=== PATIENT | female | born 1945 | race Caucasian/White ===

== ENCOUNTER 2018-05-24 10:10 | Inpatient (IN) | payer MEDICARE, OTHER ==
[2018-05-19 15:46] LABS: BASOPHILS % (AUTO) 0.3 % (0-1); EOSINOPHILS # (AUTO) 0.1 X10'3 (0-0.9); LYMPHOCYTES # (AUTO) 0.9 X10'3 (1.1-4.8); LYMPHOCYTES % (AUTO) 11.4 % (21-51); MEAN CORPUSCULAR HEMOGLOBIN 30.2 PG (27.0-31.0); MEAN CORPUSCULAR VOLUME 91.5 FL (78-98); MEAN PLATELET VOLUME 8.5 FL (7.4-10.4); MONOCYTES # (AUTO) 0.1 X10'3 (0-0.9); MONOCYTES % (AUTO) 1.5 % (2-12); NEUTROPHILS # (AUTO) 6.7 X10'3 (1.8-7.7); NEUTROPHILS % (AUTO) 85.8 % (42-75); PRE OP HEMATOCRIT 42.2 % (35.0-45.0); PRE OP HEMOGLOBIN 13.9 g/dL (12.0-16.0); PRE OP PLATELET COUNT 302 X10'3 (140-440); RED BLOOD COUNT 4.61 X10'6 (4.20-5.60); RED CELL DISTRIBUTION WIDTH 13.7 % (11.5-14.5)
[2018-05-19 16:01] LABS: CLARITY,URINE CLOUDY (Clear); COLOR,URINE YELLOW (Yellow); GLUCOSE, URINE NEGATIVE (Neg); KETONES,URINE TRACE mg/dl (Neg); LEUKOCYTE ESTERASE ,URINE NEGATIVE (Neg); NITRITES, URINE NEGATIVE (Neg); OCCULT BLOOD,URINE NEGATIVE (Neg); PH,URINE 7.5 (4.8-8.0); PROTEIN,URINE NEGATIVE (Neg); UROBILINOGEN,URINE 0.2 E.U/dL (0.2-1.0)
[2018-05-19 16:07] LABS: UA COLLECTION TYPE CLN CATCH MIDSTREAM
[2018-05-19 16:08] LABS: AMORPHOUS PHOSPHATES 3+; BACTERIA,URINE FEW /HPF (Neg); SQUAMOUS EPITHELIAL CELL,UR FEW /LPF (FEW)
[2018-05-19 16:09] LABS: RBC,URINE 0-2 /HPF (0-2); WBC,URINE 0-4 /HPF (0-4)
[2018-05-19 16:25] LABS: ALBUMIN 3.9 G/DL (3.4-5.0); ALBUMIN/GLOBULIN RATIO 1.3 (1.1-1.5); ALKALINE PHOSPHATASE 89 IU/L (46-116); BLOOD UREA NITROGEN 17 MG/DL (7-18); BUN/CREATININE RATIO 18.3 (6.6-38.0); CHLORIDE 105 MMOL/L (99-107); CREATININE 0.93 MG/DL (0.40-0.90); PRE OP ALT 54 U/L (30-65); PRE OP ANION GAP 12 (8-16); PRE OP AST 33 U/L (10-37); PRE OP BILIRUB, TOTAL 0.4 MG/DL (0.0-1.0); PRE OP GLUCOSE 106 MG/DL (70-104); PRE OP POTASSIUM 3.7 MMOL/L (3.4-5.1); PRE OP SODIUM 144 MMOL/L (135-145); TOTAL CARBON DIOXIDE 26.8 MMOL/L (24-32); eGFR 59 ML/MIN
[~2018-05-24] VITALS: Ht 160 cm; Wt 78.0 kg
[2018-05-24] VITALS (22 sets, daily range): BP systolic 92–179; BP diastolic 34–96
[~2018-05-24 10:10] MED LIST: ACET-2971 PO; CLOP75TA15 PO; FLAX100015 PO; HYDROcodone/acetaminophen 10/325mg tab PO PRN; HYDROmorphone 1 mg/ml syringe IV PRN; MAGN400T39 PO; MULT-1085 PO; PRED5TAB PO; QUET-1 PO; acetaminophen 325mg tablet PO ONE; acetaminophen 325mg tablet PO PRN; bisacodyl 10mg suppository rectal RC PRN; ceFAZolin 1GM/D5W- ADD-VANTAGE 50 ML IV ONE; cefazolin/dext.iso 2gm/100 ML IV ONE; celeCOXIB 100mg capsule PO ONE; diphenhydrAMINE 25mg capsule PO PRN; famotidine 20mg tablet PO ONE; gabapentin 300mg capsule PO ONE; magnesium hydroxide 30ml (MOM) UD suspension PO PRN; metoclopramide 5 mg/ml inj IV ONE; ondansetron/PF 4mg/2ml inj IV PRN; oxyCODONE SR 10mg (sust. release) tab PO ONE; ringers solution, lacted 1,000 ML IV SCH; vancomycin inj 1,500 MG in normal saline 300ml IV soln IV ONE
[2018-05-24] MEDS ORDERED: BUPIVAcaine/PF 2.5mg/ml (0.25%) 10ml vial ONE (10:21)
[2018-05-24] MEDS ORDERED: glycopyrrolate 0.2mg/ml inj ONE (10:52)
[2018-05-24] MEDS ORDERED: MIDAZolam 5mg/5ml vial ONE (10:57)
[2018-05-24] MEDS ORDERED: fentaNYL/PF 50MCG/1 ML 2ML syringe ONE (10:57)
[2018-05-24] MEDS ORDERED: hydrocortisone sod succ/PF 100mg/2ml inj. ONE (11:11)
[2018-05-24] MEDS ORDERED: ePHEDrine 50MG/ML INJ. ONE (11:34)
[2018-05-24] MEDS ORDERED: ringers solution, lacted 1,000 ML IV SCH (11:49)
[2018-05-24] MEDS ORDERED: proCHLORperazine 10 MG/2 ml inj IV PRN (11:50)
[2018-05-24] MEDS ORDERED: meperidine/PF 25mg/ml syringe IV PRN ×3 (11:50)
[2018-05-24] MEDS ORDERED: ondansetron/PF 4mg/2ml inj IV PRN (11:50)
[2018-05-24] MEDS ORDERED: ROPIVAcaine 0.5% (5mg/ml) 30ml vial ONE (12:22)
[2018-05-24] MEDS: potassium cl 20mEq in 1/2 NS 1,000 ML IV SCH ×2 (16:08→19:02)
[2018-05-24] MEDS: gabapentin 300mg capsule PO SCH ×3 (16:08→20:07)
[2018-05-24] MEDS: multivitamins, therapeutics tablet PO SCH (16:09)
[2018-05-24] MEDS: clopidogrel 75mg tablet PO SCH (16:09)
[2018-05-24] MEDS: ascorbic acid 500mg tablet PO SCH ×2 (16:09→20:07)
[2018-05-24] MEDS ORDERED: tranexamic acid inj. 780 MG in normal saline 100ml IV soln 100 ML IV ONE (16:40)
[2018-05-24] MEDS: cefazolin/dext.iso 2gm/50ml 50 ML IV SCH (16:45)
[2018-05-24] MEDS ORDERED: sennosides 8.6mg tablet PO SCH (21:00)
[2018-05-24] MEDS ORDERED: quetiapine 100mg tablet PO SCH (21:00)
[2018-05-24] MEDS ORDERED: cefazolin/dext.iso 2gm/100ml 100 ML IV SCH (22:00)
[2018-05-24] MEDS: HYDROcodone/acetaminophen 10/325mg tab PO PRN (22:54)
[2018-05-25] MEDS: cefazolin/dext.iso 2gm/50ml 50 ML IV SCH ×2 (00:21→09:26)
[2018-05-25] MEDS: potassium cl 20mEq in 1/2 NS 1,000 ML IV SCH ×2 (01:14→06:48)
[2018-05-25 02:00] VITALS: BP 139/80
[2018-05-25] MEDS: HYDROcodone/acetaminophen 10/325mg tab PO PRN (04:55)
[2018-05-25 06:00] VITALS: BP 159/76
[2018-05-25 06:13] LABS: ANION GAP 8 (8-16); CHLORIDE 108 MMOL/L (99-107); POTASSIUM 4.3 MMOL/L (3.5-5.1); SODIUM 144 MMOL/L (135-145); TOTAL CARBON DIOXIDE 27.7 MMOL/L (24-32)
[2018-05-25 06:21] LABS: RED BLOOD COUNT 3.75 X10'6 (4.20-5.60)
[2018-05-25 06:22] LABS: BASOPHILS % (AUTO) 0.1 % (0-1); EOSINOPHILS % (AUTO) 0 % (0-6); HEMATOCRIT 34.4 % (35.0-45.0); HEMOGLOBIN 12.2 g/dl (12.0-16.0); LYMPHOCYTES # (AUTO) 1.6 X10'3 (1.1-4.8); LYMPHOCYTES % (AUTO) 13.1 % (21-51); MEAN CORPUSCULAR HEMOGLOBIN 32.5 PG (27.0-31.0); MEAN CORPUSCULAR HGB CONC 35.4 % (33.0-36.5); MEAN CORPUSCULAR VOLUME 91.8 FL (78-98); MEAN PLATELET VOLUME 8.8 FL (7.4-10.4); MONOCYTES # (AUTO) 0.8 X10'3 (0-0.9); MONOCYTES % (AUTO) 6.5 % (2-12); NEUTROPHILS # (AUTO) 9.6 X10'3 (1.8-7.7); NEUTROPHILS % (AUTO) 80.3 % (42-75); PLATELET COUNT 248 X10'3 (140-440); RED CELL DISTRIBUTION WIDTH 12.6 % (11.5-14.5)
[2018-05-25] MEDS ORDERED: predniSONE 5mg tablet PO SCH (08:00)
[2018-05-25] MEDS: ascorbic acid 500mg tablet PO SCH (09:27)
[2018-05-25] MEDS: clopidogrel 75mg tablet PO SCH (09:27)
[2018-05-25] MEDS: multivitamins, therapeutics tablet PO SCH (09:27)
[2018-05-25] MEDS: gabapentin 300mg capsule PO SCH (09:28)
[2018-05-25 10:00] VITALS: BP 138/57
[2018-05-25] MEDS ORDERED: celeCOXIB 100mg capsule PO SCH (20:00)
== END 2018-05-25 11:30 | disposition home or self-care (01) | DRG 497 ==
LOC: PRE-OP 10:10 → ORTHO 4S 15:43
PROVIDERS: ADMIT Orthopaedic Surgery; ATTEND Orthopaedic Surgery
PROC: 3E0T3BZ Introduction of Anesthetic Agent into Peripheral Nerves and Plexi, Percutaneous Approach (ICD-10-PCS; 2018-05-24)
PROC: BQ171ZZ Fluoroscopy of Right Knee using Low Osmolar Contrast (ICD-10-PCS; 2018-05-24)
PROC: 0QPG04Z Removal of Internal Fixation Device from Right Tibia, Open Approach (ICD-10-PCS; 2018-05-24)
PROC: 0QPB04Z Removal of Internal Fixation Device from Right Lower Femur, Open Approach (ICD-10-PCS; principal; 2018-05-24 10:52)
DX: T84.498A Other mechanical complication of other internal orthopedic devices, implants and grafts, initial encounter (principal); Y79.3 Surgical instruments, materials and orthopedic devices (including sutures) associated with adverse incidents; I25.10 Atherosclerotic heart disease of native coronary artery without angina pectoris; I10 Essential (primary) hypertension; E66.9 Obesity, unspecified; M17.0 Bilateral primary osteoarthritis of knee; Z95.5 Presence of coronary angioplasty implant and graft; Z79.899 Other long term (current) drug therapy; Z79.02 Long term (current) use of antithrombotics/antiplatelets; Z68.30 Body mass index [BMI] 30.0-30.9, adult; Y92.89 Other specified places as the place of occurrence of the external cause
CPT/HCPCS: 36415; 71046; 73560; 76000; 80051; 80053; 81001; 85025; 85610; 85730; 86885; 86900; 86901; 87070; 93005; 97116; 97162; 97530; A6222; A6446; A6449; A7000; G0378; J0690; J1170; J1720; J2250; J2765; J2795; J3010; J3370; J3490; J7030; J7120; J7512; L1832

== ENCOUNTER 2018-08-23 05:38 | Inpatient (IN) | payer MEDICARE, OTHER | END 2018-08-25 12:30 | disposition home or self-care (01) | LOC: PAS IN 05:38 → ORTHO 4S 11:15 | PROC: 0SRC0J9 Replacement of Right Knee Joint with Synthetic Substitute, Cemented, Open Approach (ICD-10-PCS; principal; 2018-08-23 07:12) | DX: M17.11 Unilateral primary osteoarthritis, right knee (principal); D62 Acute posthemorrhagic anemia ==

== ENCOUNTER 2019-01-03 07:22 | Day surgery (SDC) | payer MEDICARE, OTHER ==
[2018-12-29 16:31] LABS: ALBUMIN 3.8 G/DL (3.4-5.0); ALBUMIN/GLOBULIN RATIO 1.2 (1.1-1.5); ALKALINE PHOSPHATASE 103 IU/L (46-116); BLOOD UREA NITROGEN 22 MG/DL (7-18); BUN/CREATININE RATIO 20.6 (6.6-38.0); CALCIUM 8.9 MG/DL (8.5-10.1); CHLORIDE 107 MMOL/L (99-107); CREATININE 1.07 MG/DL (0.40-0.90); PRE OP ALT 32 U/L (30-65); PRE OP ANION GAP 6 (8-16); PRE OP AST 19 U/L (10-37); PRE OP BILIRUB, TOTAL 0.4 MG/DL (0.0-1.0); PRE OP GLUCOSE 82 MG/DL (70-104); PRE OP POTASSIUM 3.6 MMOL/L (3.4-5.1); PRE OP SODIUM 144 MMOL/L (135-145); TOTAL CARBON DIOXIDE 30.7 MMOL/L (24-32); eGFR 50 ML/MIN
[2018-12-29 16:34] LABS: BASOPHILS % (AUTO) 0.5 % (0-1); EOSINOPHILS # (AUTO) 0.2 X10'3 (0-0.9); EOSINOPHILS % (AUTO) 2.6 % (0-6); LYMPHOCYTES # (AUTO) 3.2 X10'3 (1.1-4.8); LYMPHOCYTES % (AUTO) 35.7 % (21-51); MEAN CORPUSCULAR HEMOGLOBIN 29.5 PG (27.0-31.0); MEAN CORPUSCULAR HGB CONC 32.8 g/dL (33.0-36.5); MEAN PLATELET VOLUME 8.3 FL (7.4-10.4); MONOCYTES # (AUTO) 0.7 X10'3 (0-0.9); MONOCYTES % (AUTO) 7.9 % (2-12); NEUTROPHILS # (AUTO) 4.7 X10'3 (1.8-7.7); NEUTROPHILS % (AUTO) 53.3 % (42-75); PRE OP HEMATOCRIT 43.3 % (35.0-45.0); PRE OP HEMOGLOBIN 14.2 g/dL (12.0-16.0); PRE OP PLATELET COUNT 288 X10'3 (140-440); RED BLOOD COUNT 4.81 X10'6 (4.20-5.60); RED CELL DISTRIBUTION WIDTH 14.4 % (11.5-14.5)
[2018-12-29 16:45] LABS: PARTIAL THROMBOPLASTIN TIME 25 SECONDS (22-32)
[~2019-01-03] VITALS: Ht 157.5 cm; Wt 78.0 kg
[2019-01-03] VITALS (17 sets, daily range): BP systolic 101–179; BP diastolic 36–98
[~2019-01-03 07:22] MED LIST changes: -ACET-2971 PO; +B COMPLEX PO; +CAL/MAG/ZINC PO; +CHOL10002 PO; -CLOP75TA15 PO; +DICL75TA5 PO; -HYDROcodone/acetaminophen 10/325mg tab PO PRN; -HYDROmorphone 1 mg/ml syringe IV PRN; -MULT-1085 PO; -QUET-1 PO; -acetaminophen 325mg tablet PO ONE; -acetaminophen 325mg tablet PO PRN; -bisacodyl 10mg suppository rectal RC PRN; -ceFAZolin 1GM/D5W- ADD-VANTAGE 50 ML IV ONE; -cefazolin/dext.iso 2gm/100 ML IV ONE; -celeCOXIB 100mg capsule PO ONE; -diphenhydrAMINE 25mg capsule PO PRN; -famotidine 20mg tablet PO ONE; -gabapentin 300mg capsule PO ONE; -magnesium hydroxide 30ml (MOM) UD suspension PO PRN; -metoclopramide 5 mg/ml inj IV ONE; -ondansetron/PF 4mg/2ml inj IV PRN; -oxyCODONE SR 10mg (sust. release) tab PO ONE; -ringers solution, lacted 1,000 ML IV SCH; -vancomycin inj 1,500 MG in normal saline 300ml IV soln IV ONE
[2019-01-03] MEDS ORDERED: metoclopramide 5 mg/ml inj IV ONE (08:00)
[2019-01-03] MEDS ORDERED: acetaminophen 325mg tablet PO ONE (08:00)
[2019-01-03] MEDS ORDERED: cefazolin/dext.iso 2gm/100 ML IV ONE (08:00)
[2019-01-03] MEDS ORDERED: gabapentin 300mg capsule PO ONE (08:00)
[2019-01-03] MEDS ORDERED: celeCOXIB 100mg capsule PO ONE (08:00)
[2019-01-03] MEDS ORDERED: famotidine 20mg tablet PO ONE (08:00)
[2019-01-03] MEDS ORDERED: ringers solution, lacted 1,000 ML IV SCH ×2 (08:00→10:20)
[2019-01-03] MEDS ORDERED: BUPIVAcaine/PF 2.5 mg/ml (0.25%) 30ml vial ONE (09:26)
[2019-01-03] MEDS ORDERED: etomidate 2mg/ml inj. ONE (09:36)
[2019-01-03] MEDS ORDERED: dexamethasone sod phosphate 10mg/ml inj ONE (09:36)
[2019-01-03] MEDS ORDERED: MIDAZolam 5mg/5ml vial ONE ×2 (09:43→09:52)
[2019-01-03] MEDS ORDERED: fentaNYL/PF 50MCG/1 ML 2ML syringe ONE (09:43)
[2019-01-03] MEDS ORDERED: propofol inj 20 ML IV ONE (09:54)
[2019-01-03] MEDS ORDERED: CLOP75TA35 PO (10:13)
[2019-01-03] MEDS ORDERED: ASPI81TA52 PO (10:13)
[2019-01-03] MEDS ORDERED: meperidine/PF 25mg/ml syringe IV PRN ×2 (10:20)
[2019-01-03] MEDS ORDERED: hydrALAZINE 20mg/ml inj. IV PRN (10:20)
[2019-01-03] MEDS ORDERED: labetalol 20mg/4ml (5mg/ml) syringe IV PRN (10:20)
[2019-01-03] MEDS ORDERED: ondansetron/PF 4mg/2ml inj IV PRN ×2 (10:20→10:25)
[2019-01-03] MEDS ORDERED: fentaNYL/PF 50MCG/1 ML 2ML syringe IV PRN ×2 (10:20)
[2019-01-03] MEDS ORDERED: diphenhydrAMINE 50 mg/ml inj IV PRN (10:25)
--- NOTE | 2019-01-03 10:54 | NUR ---
Received from OR via [facility], accompanied by Anesthesiologist DR POWELL and report given by Anesthesiologist. PT DROWSY, DENIES PAIN, LEFT KNEE W/KAT WRAP COVERING ISLAND DRSG/TIERA/SUTURES, CDI. Addendum: 01/03/19 at 1125 by Kassandra Vanegas RN Amended: Links added.
--- NOTE | 2019-01-03 15:14 | NUR ---
PT GIVEN LUNCH, PTS SENSATION RETURN TO [facility], RAMIREZ CATHETER D/CD AFTER DEFLATING BALLOON, PTS DRSG W/BLOODY DRAINAGE AFTER PT STANDING, CALL INTO DR SANCHEZ, UPDATED, ORDERS RECEIVED, CHANGED DRSG, INFERIOR LATERAL INCISION W/SMALL AMT OF BLOODY DRAINAGE, PLACED 4X4'S W/KERLEX AND KAT WRAP COVERING, CDI, INSTRUCTED PT TO CALL DR SANCHEZ OFFICE IF RE-BLEEDS, PT VERBALIZED UNDERSTANDING, D/C INSTRUCTIONS GONE OVER AND GIVEN TO PT, VERBALIZE UNDERSTANDING. PT D'CD TO HOME VIA W/C TO PRIVATE VEHICLE W/O INCIDENT. Addendum: 01/03/19 at 1533 by Kassandra Vanegas RN Amended: Links added.
[2019-03-21] MEDS ORDERED: ZOLP10TA5 PO (11:02)
[2019-03-21] MEDS ORDERED: MULT-933 PO (11:03)
== END 2019-01-03 15:14 | disposition home or self-care (01) ==
LOC: PAS 07:22
PROVIDERS: ATTEND Orthopaedic Surgery
PROC: 0QPH04Z Removal of Internal Fixation Device from Left Tibia, Open Approach (ICD-10-PCS; 2019-01-03)
PROC: 0QPC04Z Removal of Internal Fixation Device from Left Lower Femur, Open Approach (ICD-10-PCS; principal; 2019-01-03 09:36)
DX: Z47.2 Encounter for removal of internal fixation device (principal); M17.12 Unilateral primary osteoarthritis, left knee; M25.562 Pain in left knee; R26.2 Difficulty in walking, not elsewhere classified; E66.9 Obesity, unspecified; L30.3 Infective dermatitis; I25.2 Old myocardial infarction; I12.9 Hypertensive chronic kidney disease with stage 1 through stage 4 chronic kidney disease, or unspecified chronic kidney disease; N18.3 Chronic kidney disease, stage 3 (moderate); I25.10 Atherosclerotic heart disease of native coronary artery without angina pectoris; Z95.5 Presence of coronary angioplasty implant and graft
CPT/HCPCS: 20680; 36415; 73552; 76000; 80053; 82948; 85025; 85610; 85730; C1713; J1100; J2250; J2704; J2765; J3010; J3490; J7120; A4618; A6449; A7000

== ENCOUNTER 2019-03-28 05:36 | Inpatient (IN) | payer MEDICARE, OTHER ==
[2019-03-21 11:31] LABS: BASOPHILS % (AUTO) 0.4 % (0-1); EOSINOPHILS % (AUTO) 0.4 % (0-6); LYMPHOCYTES # (AUTO) 1.4 X10'3 (1.1-4.8); MEAN CORPUSCULAR HEMOGLOBIN 30.6 PG (27.0-31.0); MEAN CORPUSCULAR HGB CONC 33.7 g/dL (33.0-36.5); MEAN PLATELET VOLUME 8.6 FL (7.4-10.4); MONOCYTES # (AUTO) 0.3 X10'3 (0-0.9); MONOCYTES % (AUTO) 3.1 % (2-12); NEUTROPHILS # (AUTO) 8.4 X10'3 (1.8-7.7); NEUTROPHILS % (AUTO) 82.1 % (42-75); PRE OP HEMATOCRIT 44.3 % (35.0-45.0); PRE OP HEMOGLOBIN 14.9 g/dL (12.0-16.0); PRE OP PLATELET COUNT 292 X10'3 (140-440); RED BLOOD COUNT 4.87 X10'6 (4.20-5.60); RED CELL DISTRIBUTION WIDTH 14.1 % (11.5-14.5)
[2019-03-21 11:40] LABS: PRE OP PARTIAL THROMB. TIME 24 SECONDS (22-32); PRE OP PROTIME 9.6 SECONDS (9.0-12.0)
[2019-03-21 11:42] LABS: PRE OP INR < 0.9 INR
[2019-03-21 11:46] LABS: ALBUMIN/GLOBULIN RATIO 1.1 (1.1-1.5); ALKALINE PHOSPHATASE 100 IU/L (46-116); BLOOD UREA NITROGEN 15 MG/DL (7-18); BUN/CREATININE RATIO 14.4 (6.6-38.0); CALCIUM 9.2 MG/DL (8.5-10.1); CHLORIDE 108 MMOL/L (99-107); CREATININE 1.04 MG/DL (0.40-0.90); PRE OP ALT 37 U/L (30-65); PRE OP ANION GAP 9 (8-16); PRE OP AST 21 U/L (10-37); PRE OP BILIRUB, TOTAL 0.5 MG/DL (0.0-1.0); PRE OP GLUCOSE 119 MG/DL (70-104); PRE OP SODIUM 147 MMOL/L (135-145); TOTAL CARBON DIOXIDE 29.9 MMOL/L (24-32); TOTAL PROTEIN 7.7 G/DL (6.4-8.2); eGFR 52 ML/MIN
[2019-03-28] VITALS (18 sets, daily range): BP systolic 95–176; BP diastolic 52–97
[~2019-03-28] VITALS: Ht 157.5 cm; Wt 81.6 kg
[~2019-03-28 05:36] MED LIST changes: -B COMPLEX PO; -CAL/MAG/ZINC PO; +MULT-933 PO; +ZOLP10TA5 PO; +acetaminophen 325mg tablet PO ONE; +cefazolin/dext.iso 2gm/50ml 50 ML IV ONE; +celeCOXIB 100mg capsule PO ONE; +famotidine 20mg tablet PO ONE; +gabapentin 300mg capsule PO ONE; +metoclopramide 5 mg/ml inj IV ONE; +oxyCODONE SR 10mg (sust. release) tab -2 tabs (20mg) PO ONE; +ringers solution, lacted 1,000 ML IV SCH; +tranexamic acid inj. 1,000 MG in normal saline 100 ML IV ONE; +vancomycin inj 1,500 MG in normal saline 300ml IV soln IV ONE
[2019-03-28] MEDS ORDERED: LIDOcaine 1% (10mg/ml) 2ml vial ONE (05:55)
[2019-03-28] MEDS ORDERED: diphenhydrAMINE 25mg capsule PO PRN ×2 (06:15)
[2019-03-28] MEDS ORDERED: acetaminophen 325mg tablet PO PRN (06:15)
[2019-03-28] MEDS ORDERED: HYDROmorphone 1 mg/ml syringe IV PRN (06:15)
[2019-03-28] MEDS ORDERED: zolpidem 5mg tablet PO PRN (06:15)
[2019-03-28] MEDS ORDERED: bisacodyl 10mg suppository rectal RC PRN (06:15)
[2019-03-28] MEDS ORDERED: ondansetron/PF 4mg/2ml inj IV PRN ×2 (06:15→08:05)
[2019-03-28] MEDS ORDERED: magnesium hydroxide 30ml (MOM) UD suspension PO PRN (06:15)
[2019-03-28] MEDS ORDERED: oxyCODONE/APAP 10/325mg tablet PO PRN (06:15)
[2019-03-28] MEDS ORDERED: HYDROmorphone inj. 0.5 MG/0.5 ML DISP.SYRIN IV PRN (06:15)
[2019-03-28] MEDS ORDERED: ketorolac trometh. 30mg/ml inj. ONE (06:32)
[2019-03-28] MEDS ORDERED: epiNEPHrine 1 mg/ml inj ONE (06:32)
[2019-03-28] MEDS ORDERED: ROPIVAcaine 0.5% (5mg/ml) 30ml vial ONE ×2 (06:33→08:16)
[2019-03-28] MEDS ORDERED: cloNIDine hcl/PF 100mcg/ml inj ONE (06:33)
[2019-03-28] MEDS ORDERED: vancomycin 1,000mg inj ONE (06:34)
[2019-03-28] MEDS ORDERED: hydrocortisone sod succ/PF 100mg/2ml inj. IV ONE (06:45)
[2019-03-28] MEDS ORDERED: tetracaine 1% (10mg/ml) pres. free inj. ONE (06:55)
[2019-03-28] MEDS ORDERED: fentaNYL/PF 50MCG/1 ML 2ML syringe ONE (06:56)
[2019-03-28] MEDS ORDERED: MIDAZolam 1mg/ml 10ml vial ONE (06:56)
[2019-03-28] MEDS ORDERED: ringers solution, lacted 1,000 ML IV SCH (08:03)
[2019-03-28] MEDS ORDERED: proCHLORperazine 10 MG/2 ml inj IV PRN (08:05)
[2019-03-28] MEDS ORDERED: meperidine/PF 25mg/ml syringe IV PRN ×3 (08:05)
[2019-03-28] MEDS ORDERED: propofol inj 20 ML IV ONE (08:14)
--- NOTE | 2019-03-28 09:20 | NUR ---
ADMITTED TO PACU FROM OR ACCOMPANIED BY ANESTHESIA. INTIAL PHYSICAL ASSESSMENT DONE AND RECORDED. REPORT RECEIVED FROM ANESTHESIA.
[2019-03-28] MEDS ORDERED: ROPIVAcaine 0.2%/PF PAIN PUMP 550 ML IJ SCH (09:30)
--- NOTE | 2019-03-28 10:21 | NUR ---
report from Maryanne in recovery
--- NOTE | 2019-03-28 10:30 | NUR ---
PACU DISCHARGE CRITERIA MET, REPORT GIVEN TO FLOOR. DENIES PAIN OR DISCOMFORT, TRANSFERRED TO ROOM IN STABLE GOOD CONDITION.
[2019-03-28] MEDS ORDERED: ROPIVAcaine 0.2%/PF PAIN PUMP 550 ML ADDCANAL SCH ×2 (11:22→13:37)
[2019-03-28] MEDS: gabapentin 300mg capsule PO SCH ×3 (11:30→20:13)
[2019-03-28] MEDS: multivitamins, therapeutics tablet PO SCH (11:31)
[2019-03-28] MEDS: ascorbic acid 500mg tablet PO SCH ×2 (11:31→20:13)
[2019-03-28] MEDS: potassium cl 20mEq in 1/2 NS 1,000 ML IV SCH ×4 (11:35→23:39)
[2019-03-28] MEDS: aspirin 325mg tablet PO SCH (12:28)
[2019-03-28] MEDS: predniSONE 5mg tablet PO SCH (12:30)
[2019-03-28] MEDS ORDERED: TRANEXAMIC ACID IV ONE (14:00)
[2019-03-28] MEDS ORDERED: NORMAL SALINE IV ONE (14:00)
[2019-03-28] MEDS: cefazolin/dext.iso 2gm/50ml 50 ML IV SCH ×2 (15:27→23:36)
--- NOTE | 2019-03-28 18:50 | NUR ---
Patient in room [facility]TH[facility] 4024. I have received report from ANAND GENAO and had the opportunity to ask questions and assume patient care.
--- NOTE | 2019-03-28 18:51 | NUR ---
Problems reprioritized. Patient report given, questions answered & plan of care reviewed with Kenyetta Deng.
[2019-03-28] MEDS: oxyCODONE/APAP 10/325mg tablet PO PRN (19:06)
[2019-03-28] MEDS ORDERED: sennosides 8.6mg tablet PO SCH (21:00)
[2019-03-29 02:00] VITALS: BP 151/57
[2019-03-29] MEDS: oxyCODONE/APAP 10/325mg tablet PO PRN (05:07)
[2019-03-29 05:58] LABS: BASOPHILS % (AUTO) 0.3 % (0-1); EOSINOPHILS # (AUTO) 0.1 X10'3 (0-0.9); EOSINOPHILS % (AUTO) 1.5 % (0-6); HEMATOCRIT 33.2 % (35.0-45.0); HEMOGLOBIN 11.3 g/dl (12.0-16.0); LYMPHOCYTES # (AUTO) 2.4 X10'3 (1.1-4.8); MEAN CORPUSCULAR HEMOGLOBIN 31.3 PG (27.0-31.0); MEAN CORPUSCULAR HGB CONC 33.9 g/dL (33.0-36.5); MEAN CORPUSCULAR VOLUME 92.5 FL (78-98); MEAN PLATELET VOLUME 8.3 FL (7.4-10.4); MONOCYTES # (AUTO) 0.9 X10'3 (0-0.9); MONOCYTES % (AUTO) 9.5 % (2-12); NEUTROPHILS # (AUTO) 6.1 X10'3 (1.8-7.7); NEUTROPHILS % (AUTO) 63.7 % (42-75); PLATELET COUNT 208 X10'3 (140-440); RED BLOOD COUNT 3.59 X10'6 (4.20-5.60); RED CELL DISTRIBUTION WIDTH 13.9 % (11.5-14.5); WHITE BLOOD COUNT 9.6 X10'3 (4.5-11.0)
[2019-03-29 06:00] VITALS: BP 132/67
[2019-03-29 06:08] LABS: ANION GAP 6 (8-16); CHLORIDE 108 MMOL/L (99-107); POTASSIUM 3.4 MMOL/L (3.5-5.1); SODIUM 144 MMOL/L (135-145); TOTAL CARBON DIOXIDE 29.8 MMOL/L (24-32)
--- NOTE | 2019-03-29 06:11 | NUR ---
Problems reprioritized. Patient report given, questions answered & plan of care reviewed with chris Bruce.
--- NOTE | 2019-03-29 06:29 | NUR ---
Received report from Kenyetta MICHEL
[2019-03-29] MEDS: predniSONE 5mg tablet PO SCH (07:40)
[2019-03-29] MEDS: multivitamins, therapeutics tablet PO SCH (07:40)
[2019-03-29] MEDS: ascorbic acid 500mg tablet PO SCH (07:40)
[2019-03-29] MEDS: gabapentin 300mg capsule PO SCH (07:41)
[2019-03-29] MEDS: aspirin 325mg tablet PO SCH (07:42)
[2019-03-29 10:19] VITALS: BP 132/51
--- NOTE | 2019-03-29 10:45 | NUR ---
Patient was discharged IV and tele was removed from patient. Explained discharge papers to patient. Patient was alert and oriented at time of discharge. Patient left all belongings and left with her sister. patient will follow up with dr. Glass
[2019-03-29] MEDS ORDERED: celeCOXIB 100mg capsule PO SCH (20:00)
== END 2019-03-29 10:45 | disposition home or self-care (01) | DRG 470 ==
LOC: PAS IN 05:36 → EDSTATUS 07:30 → ORTHO 4S 10:30
PROVIDERS: ADMIT Orthopaedic Surgery; ATTEND Orthopaedic Surgery
PROC: 3E0T3BZ Introduction of Anesthetic Agent into Peripheral Nerves and Plexi, Percutaneous Approach (ICD-10-PCS; 2019-03-28)
PROC: 0SRD0J9 Replacement of Left Knee Joint with Synthetic Substitute, Cemented, Open Approach (ICD-10-PCS; principal; 2019-03-28 06:49)
DX: M17.12 Unilateral primary osteoarthritis, left knee (principal); D62 Acute posthemorrhagic anemia; M21.062 Valgus deformity, not elsewhere classified, left knee; I25.10 Atherosclerotic heart disease of native coronary artery without angina pectoris; M25.762 Osteophyte, left knee; E66.9 Obesity, unspecified; N18.3 Chronic kidney disease, stage 3 (moderate); I12.9 Hypertensive chronic kidney disease with stage 1 through stage 4 chronic kidney disease, or unspecified chronic kidney disease; Z96.651 Presence of right artificial knee joint; Z88.6 Allergy status to analgesic agent; Z88.8 Allergy status to other drugs, medicaments and biological substances; Z85.038 Personal history of other malignant neoplasm of large intestine; Z95.5 Presence of coronary angioplasty implant and graft; Z79.899 Other long term (current) drug therapy; Z90.49 Acquired absence of other specified parts of digestive tract; Z98.891 History of uterine scar from previous surgery; Z68.32 Body mass index [BMI] 32.0-32.9, adult
CPT/HCPCS: 36415; 71046; 73560; 80051; 80053; 82948; 85025; 85610; 85730; 86885; 86900; 86901; 87081; 97110; 97162; 97530; A4215; A6449; A6454; A7000; C1713; C1758; C1776; G0378; J0171; J0735; J1720; J1885; J2001; J2250; J2704; J2765; J2795; J3010; J3370; J3480; J7120; J7512